=== PATIENT | female | born 1940 | race Caucasian/White ===

== ENCOUNTER 2018-04-28 13:17 | Observation (INO) | payer MEDICARE, OTHER ==
[~2018-04-28] VITALS: Ht 157.5 cm; Wt 58.0 kg
[2018-04-28] MEDS ORDERED: BENZOCAINE AEROSOL SPRAY 20%, 60ML ONE (14:19)
[2018-04-28] MEDS ORDERED: BENZOCAINE 20% SPRAY 0.5ML ONE (14:19)
--- NOTE | 2018-04-28 15:01 | NUR ---
SBAR report received from RNEn. Pt resting on [facility], on monitors.
[2018-04-28] MEDS ORDERED: LIDOCAINE 1%-EPI 1:100K, 30ML ONE (15:48)
[2018-04-28] MEDS ORDERED: BENZOCAINE 20% SPRAY 0.5ML TP ONE (16:00)
[2018-04-28] MEDS ORDERED: LIDOCAINE 1%-EPI 1:100K, 20ML INFIL ONE (16:00)
--- NOTE | 2018-04-28 16:37 | NUR ---
Pt resting on gurney, aware of plan for ENT to drain abscess. Family at bedside with pt.
--- NOTE | 2018-04-28 17:10 | NUR ---
Dr. Noe at bedside to evaluate pt.
--- NOTE | 2018-04-28 17:55 | NUR ---
Dr. Noe to bedside for procedure.
--- NOTE | 2018-04-28 18:46 | NUR ---
Telephone SBAR report given to RNLucinda.
[2018-04-28] MEDS ORDERED: ONDANSETRON ODT 4 MG PO PRN (19:30)
[2018-04-28] MEDS ORDERED: ACETAMINOPHEN 500 MG TABLET PO PRN (19:30)
[2018-04-28] MEDS ORDERED: AMPICILLIN/SULBACTAM 1,500 MG in SODIUM CHLORIDE 0.9% 50 ML IV SCH (20:00)
[2018-04-28] MEDS ORDERED: KETOROLAC 30 MG/1 ML IVPush PRN (20:00)
[2018-04-28 20:30] VITALS: BP 134/80
[2018-04-28] MEDS: AMPICILLIN/SULBACTAM 3 GM in SODIUM CHLORIDE 0.9% 100 ML IV SCH (21:08)
[2018-04-28] MEDS: SODIUM CHLORIDE 0.9% 1,000 ML IV SCH (21:09)
[2018-04-29 01:38] VITALS: BP 159/78
[2018-04-29] MEDS: AMPICILLIN/SULBACTAM 3 GM in SODIUM CHLORIDE 0.9% 100 ML IV SCH ×2 (03:24→08:52)
[2018-04-29 05:24] LABS: BASOPHILS # (AUTO) 0.01 x10^3/uL (0-0.1); BASOPHILS % (AUTO) 0 % (0-1); EOSINOPHILS % (AUTO) 0 % (1-7); LYMPHOCYTES # (AUTO) 0.49 x10^3/uL (1-3.4); LYMPHOCYTES % (AUTO) 5 % (22-44); MD NO; MEAN CORPUSCULAR HEMOGLOBIN 32.5 pg (27.0-34.8); MEAN CORPUSCULAR HGB CONC 33.6 g/dL (32.4-35.8); MEAN CORPUSCULAR VOLUME 96.5 fL (80-100); MEAN PLATELET VOLUME 8.3 fL (7.4-10.4); MONOCYTES # (AUTO) 0.89 x10^3/uL (0.2-0.8); MONOCYTES % (AUTO) 9 % (2-9); NEUTROPHILS # (AUTO) 8.18 x10^3/uL (1.8-6.8); NEUTROPHILS % (AUTO) 85 % (42-75); PLATELET COUNT 282 x10^3/uL (130-400); RED BLOOD COUNT 4.25 x10^6/uL (3.82-5.3); RED CELL DISTRIBUTION WIDTH 13.2 % (9.6-15.2)
[2018-04-29 07:00] VITALS: BP 118/69
[2018-04-29] MEDS: SODIUM CHLORIDE 0.9% 1,000 ML IV SCH (08:52)
[2018-04-29] MEDS ORDERED: AMOX1TAB64 PO (12:11)
[2018-04-29 13:16] VITALS: BP 127/75
== END 2018-04-29 14:19 | disposition home or self-care (01) ==
LOC: ED 14:04 → EDIP 18:23 → INTOOBSV 18:23 → UNDOADMOB 18:23 → EDIP 19:06 → 4NOR 19:06 → EDIP 19:11 → DCLOUNGE 04-29 14:10 → 4NOR 04-29 14:10 → UNDODISOB 04-29 14:19
PROVIDERS: ADMIT Hospitalist; ATTEND Hospitalist
DX: J03.90 Acute tonsillitis, unspecified (principal); M81.0 Age-related osteoporosis without current pathological fracture; J35.8 Other chronic diseases of tonsils and adenoids; Z87.891 Personal history of nicotine dependence
CPT/HCPCS: 36415; 42700; 85025; 96365; 96366; 99284; G0378; J0295; J7030

== ENCOUNTER 2018-05-19 12:34 | Inpatient (IN) | payer MEDICARE ==
[~2018-05-19] VITALS: Ht 157.5 cm; Wt 59.7 kg
[~2018-05-19 12:34] MED LIST: AMOX1TAB64 PO
--- NOTE | 2018-05-19 13:26 | NUR ---
PT BIB FAMILY FROM CT AFTER MD TOLD PT TO COME TO ER FOR APPENDICITIS. PT REPORTS SHARP, INTERMITTENT RLQ ABD PAIN SINCE 04/30/18. PT DENIES N/V OR DIARRHEA. PT UNDRESSED AND IV STARTED BY CT.
[2018-05-19] MEDS ORDERED: SODIUM CHLORIDE FLUSH 10ML SYR IVF ONE (13:30)
[2018-05-19] MEDS ORDERED: CEFOTETAN PMX 1GM/50ML 50 ML IVPB ONE (13:30)
[2018-05-19] MEDS ORDERED: CEFOTETAN PMX 1GM/50ML 50 ML ONE (13:32)
[2018-05-19 13:35] LABS: BASOPHILS # (AUTO) 0.02 x10^3/uL (0-0.1); BASOPHILS % (AUTO) 0 % (0-1); EOSINOPHILS % (AUTO) 1 % (1-7); LYMPHOCYTES # (AUTO) 0.74 x10^3/uL (1-3.4); LYMPHOCYTES % (AUTO) 8 % (22-44); MD NO; MEAN CORPUSCULAR HGB CONC 33.2 g/dL (32.4-35.8); MEAN CORPUSCULAR VOLUME 96.5 fL (80-100); MEAN PLATELET VOLUME 8.2 fL (7.4-10.4); MONOCYTES # (AUTO) 0.42 x10^3/uL (0.2-0.8); MONOCYTES % (AUTO) 5 % (2-9); NEUTROPHILS # (AUTO) 8.21 x10^3/uL (1.8-6.8); NEUTROPHILS % (AUTO) 87 % (42-75); PLATELET COUNT 354 x10^3/uL (130-400); RED BLOOD COUNT 4.84 x10^6/uL (3.82-5.3)
[2018-05-19 13:47] LABS: ALANINE AMINOTRANSFERASE 19 U/L (12-78); ALBUMIN 3.8 g/dL (3.4-5.0); ANION GAP 11 mmol/L (5-15); CALCIUM 9.8 mg/dL (8.5-10.1); CHLORIDE 98 mmol/L (98-107); INTERNATIONAL NORMALIZED RATIO 1.14 (0.93-1.1)
[2018-05-19 13:49] LABS: ALKALINE PHOSPHATASE 72 U/L (45-117); BILIRUBIN,TOTAL 0.7 mg/dL (0.2-1.0); TOTAL PROTEIN 8.5 g/dL (6.4-8.2)
[2018-05-19] MEDS ORDERED: BISACODYL 10 MG SUPP PR PRN (14:00)
[2018-05-19] MEDS ORDERED: ACETAMINOPHEN 325 MG TABLET PO PRN (14:00)
[2018-05-19] MEDS ORDERED: hydrALAzine 20 MG/ML, 1ML IVPush PRN (14:00)
[2018-05-19] MEDS ORDERED: POLYETHYLENE GLYCOL 17 GM PACKET PO PRN (14:00)
[2018-05-19] MEDS ORDERED: DOCUSATE 100 MG CAPSULE PO PRN (14:00)
[2018-05-19 14:35] LABS: CULTURE INDICATED? YES; MICROSCOPIC INDICATED
[2018-05-19] MEDS ORDERED: ALENDRONATE PO (14:42)
[2018-05-19 15:29] VITALS: BP 112/69
[2018-05-19] MEDS: PIPERACILLIN/TAZO/PMX 3.375GM 50 ML IV SCH ×2 (16:48→23:31)
[2018-05-19] MEDS: NS + 20MEQ KCL 1,000 ML IV SCH (16:49)
[2018-05-19] MEDS ORDERED: BUPIVACAINE/PF-EPI 0.5% 1:200K ONE (17:46)
[2018-05-19] MEDS ORDERED: SUCCINYLCHOLINE 20 MG/ML, 10ML ONE (19:03)
[2018-05-19] MEDS ORDERED: DEXAMETHASONE 4 MG/ML, 1ML ONE (19:03)
[2018-05-19] MEDS ORDERED: ONDANSETRON 2MG/ML, 2ML ONE (19:03)
[2018-05-19] MEDS ORDERED: PROPOFOL 10 MG/ML, 20ML ONE (19:03)
[2018-05-19] MEDS ORDERED: ROCURONIUM 10 MG/ML,10ML ONE (19:03)
[2018-05-19] MEDS ORDERED: ONDANSETRON 2MG/ML, 2ML IV PRN (19:30)
[2018-05-19] MEDS ORDERED: HYDROmorphone 2 MG/ML, 1ML IVPush PRN (19:30)
[2018-05-19] MEDS ORDERED: hydrALAzine 20 MG/ML, 1ML IV PRN (19:30)
[2018-05-19] MEDS ORDERED: MEPERIDINE/PF 25MG/0.5ML IVPush PRN (19:30)
[2018-05-19] MEDS ORDERED: OXYcodone 5 MG/5 ML ORAL.SOL UDC PO PRN (19:30)
[2018-05-19] MEDS ORDERED: PROMETHAZINE 25 MG/ML, 1ML IV PRN (19:30)
[2018-05-19] MEDS ORDERED: LABETALOL 5MG/ML, 20ML IV PRN (19:30)
[2018-05-19] MEDS ORDERED: FENTANYL PF 100 MCG/2ML ONE (20:04)
[2018-05-19] MEDS ORDERED: ACETAMINOPHEN 650 MG/20.3 ML UDC ONE (20:04)
[2018-05-19] MEDS ORDERED: OXYcodone 5 MG/5 ML ORAL.SOL UDC ONE (20:05)
[2018-05-19] MEDS: FENTANYL PF 100 MCG/2ML IV PRN ×2 (20:14→20:24)
[2018-05-19] MEDS ORDERED: HYDROmorphone 1 MG/ML, 1ML ONE (20:25)
[2018-05-19 20:57] VITALS: BP 106/67
[2018-05-20 00:50] VITALS: BP 94/59
[2018-05-20] MEDS: morphine SULFATE 10 MG/ML, 1ML IVPush PRN ×5 (01:29→23:34)
[2018-05-20] MEDS: PIPERACILLIN/TAZO/PMX 3.375GM 50 ML IV SCH ×4 (05:25→23:34)
[2018-05-20 05:48] LABS: ALBUMIN 2.9 g/dL (3.4-5.0); ANION GAP 10 mmol/L (5-15); CALCIUM 8.3 mg/dL (8.5-10.1); CHLORIDE 106 mmol/L (98-107)
[2018-05-20 05:54] LABS: ALANINE AMINOTRANSFERASE 15 U/L (12-78); ALKALINE PHOSPHATASE 55 U/L (45-117); BILIRUBIN,TOTAL 0.9 mg/dL (0.2-1.0); CREATININE 0.93 mg/dL (0.55-1.02); TOTAL PROTEIN 6.6 g/dL (6.4-8.2)
[2018-05-20 06:18] LABS: BASOPHILS # (AUTO) 0.01 x10^3/uL (0-0.1); BASOPHILS % (AUTO) 0 % (0-1); EOSINOPHILS # (AUTO) 0.07 x10^3/uL (0-0.4); EOSINOPHILS % (AUTO) 1 % (1-7); LYMPHOCYTES # (AUTO) 0.33 x10^3/uL (1-3.4); LYMPHOCYTES % (AUTO) 2 % (22-44); MD NO; MEAN CORPUSCULAR HEMOGLOBIN 32.7 pg (27.0-34.8); MEAN CORPUSCULAR HGB CONC 33.5 g/dL (32.4-35.8); MEAN CORPUSCULAR VOLUME 97.7 fL (80-100); MEAN PLATELET VOLUME 8.6 fL (7.4-10.4); MONOCYTES # (AUTO) 0.53 x10^3/uL (0.2-0.8); MONOCYTES % (AUTO) 4 % (2-9); NEUTROPHILS # (AUTO) 12.96 x10^3/uL (1.8-6.8); NEUTROPHILS % (AUTO) 93 % (42-75); PLATELET COUNT 286 x10^3/uL (130-400); RED CELL DISTRIBUTION WIDTH 13.1 % (9.6-15.2)
[2018-05-20 08:19] VITALS: BP 93/58
[2018-05-20] MEDS: ONDANSETRON 2MG/ML, 2ML IVPush PRN ×3 (09:20→23:34)
[2018-05-20] MEDS: NS + 20MEQ KCL 1,000 ML IV SCH ×2 (09:24→23:34)
[2018-05-20 15:47] VITALS: BP 96/57
[2018-05-20 20:55] VITALS: BP 101/60
[2018-05-21 02:03] VITALS: BP 101/56
[2018-05-21] MEDS: morphine SULFATE 10 MG/ML, 1ML IVPush PRN (05:06)
[2018-05-21] MEDS: PIPERACILLIN/TAZO/PMX 3.375GM 50 ML IV SCH ×4 (05:06→23:36)
[2018-05-21 05:18] LABS: ANION GAP 8 mmol/L (5-15); CHLORIDE 110 mmol/L (98-107); CREATININE 0.58 mg/dL (0.55-1.02)
[2018-05-21 05:26] LABS: BASOPHILS # (AUTO) 0.02 x10^3/uL (0-0.1); BASOPHILS % (AUTO) 0 % (0-1); EOSINOPHILS # (AUTO) 0.04 x10^3/uL (0-0.4); EOSINOPHILS % (AUTO) 1 % (1-7); LYMPHOCYTES % (AUTO) 11 % (22-44); MD NO; MEAN CORPUSCULAR HEMOGLOBIN 32.4 pg (27.0-34.8); MEAN CORPUSCULAR HGB CONC 32.9 g/dL (32.4-35.8); MEAN CORPUSCULAR VOLUME 98.3 fL (80-100); MEAN PLATELET VOLUME 8.1 fL (7.4-10.4); MONOCYTES # (AUTO) 0.56 x10^3/uL (0.2-0.8); MONOCYTES % (AUTO) 8 % (2-9); NEUTROPHILS # (AUTO) 5.69 x10^3/uL (1.8-6.8); NEUTROPHILS % (AUTO) 80 % (42-75); PLATELET COUNT 264 x10^3/uL (130-400); RED BLOOD COUNT 3.55 x10^6/uL (3.82-5.3); RED CELL DISTRIBUTION WIDTH 13.3 % (9.6-15.2)
[2018-05-21 07:04] VITALS: BP 94/57
[2018-05-21] MEDS ORDERED: PROMETHAZINE 25MG TABLET PO PRN (10:30)
[2018-05-21 14:06] VITALS: BP 107/65
[2018-05-21] MEDS: NS + 20MEQ KCL 1,000 ML IV SCH (14:25)
[2018-05-21 20:00] VITALS: BP 131/76
[2018-05-22] MEDS: NS + 20MEQ KCL 1,000 ML IV SCH (02:15)
[2018-05-22 02:26] VITALS: BP 127/70
[2018-05-22] MEDS: PIPERACILLIN/TAZO/PMX 3.375GM 50 ML IV SCH ×2 (05:26→11:35)
[2018-05-22 06:01] LABS: BASOPHILS # (AUTO) 0.04 x10^3/uL (0-0.1); BASOPHILS % (AUTO) 1 % (0-1); EOSINOPHILS # (AUTO) 0.17 x10^3/uL (0-0.4); EOSINOPHILS % (AUTO) 3 % (1-7); LYMPHOCYTES # (AUTO) 0.67 x10^3/uL (1-3.4); LYMPHOCYTES % (AUTO) 10 % (22-44); MD NO; MEAN CORPUSCULAR HEMOGLOBIN 32.4 pg (27.0-34.8); MEAN CORPUSCULAR HGB CONC 33.7 g/dL (32.4-35.8); MEAN CORPUSCULAR VOLUME 96.1 fL (80-100); MEAN PLATELET VOLUME 8.2 fL (7.4-10.4); MONOCYTES # (AUTO) 0.55 x10^3/uL (0.2-0.8); MONOCYTES % (AUTO) 8 % (2-9); NEUTROPHILS # (AUTO) 5.33 x10^3/uL (1.8-6.8); NEUTROPHILS % (AUTO) 79 % (42-75); PLATELET COUNT 253 x10^3/uL (130-400); RED BLOOD COUNT 3.71 x10^6/uL (3.82-5.3); RED CELL DISTRIBUTION WIDTH 13.2 % (9.6-15.2)
[2018-05-22 06:02] LABS: ANION GAP 9 mmol/L (5-15); CALCIUM 8.6 mg/dL (8.5-10.1); CHLORIDE 108 mmol/L (98-107)
[2018-05-22 06:04] LABS: CREATININE 0.52 mg/dL (0.55-1.02)
[2018-05-22 06:42] VITALS: BP 130/71
[2018-05-22] MEDS ORDERED: CEFD300C37 PO (11:44)
[2018-05-22] MEDS ORDERED: POLY17PO5 PO (11:44)
[2018-05-22] MEDS ORDERED: ACET325T14 PO (11:44)
[2018-05-22] MEDS ORDERED: ONDA4TAB13 SL (11:44)
[2018-05-22] MEDS ORDERED: METR500T PO (11:44)
[2018-05-22] MEDS ORDERED: LACT1TAB13 PO (11:44)
[2018-05-22] MEDS ORDERED: HYDR-3652 PO (11:47)
[2018-05-22] MEDS ORDERED: TRAM50TA2 PO (11:47)
[2018-05-22] MEDS ORDERED: HYDROcodone/APAP 5/325 TABLET PO PRN (12:30)
== END 2018-05-22 13:26 | disposition home or self-care (01) | DRG 853 ==
LOC: 3NE 13:37 → OR 15:06
PROVIDERS: ADMIT Internal Medicine; ATTEND Internal Medicine
PROC: 0W9G40Z Drainage of Peritoneal Cavity with Drainage Device, Percutaneous Endoscopic Approach (ICD-10-PCS; 2018-05-19)
PROC: 0DTJ4ZZ Resection of Appendix, Percutaneous Endoscopic Approach (ICD-10-PCS; principal; 2018-05-19 18:30)
DX: A41.9 Sepsis, unspecified organism (principal); K35.33 Acute appendicitis with perforation, localized peritonitis, and gangrene, with abscess; N39.0 Urinary tract infection, site not specified; B96.20 Unspecified Escherichia coli [E. coli] as the cause of diseases classified elsewhere; M81.0 Age-related osteoporosis without current pathological fracture; D25.9 Leiomyoma of uterus, unspecified; Z83.3 Family history of diabetes mellitus; Z87.891 Personal history of nicotine dependence
CPT/HCPCS: 36415; 71045; 80048; 80053; 81001; 82378; 83735; 84100; 85025; 85610; 85730; 86304; 87040; 87077; 87086; 87186; 88304; 93005; 96365; 99285; G0378; J1100; J2405; J2543; J2704; J3010; J3480; J0330; J2270; J3490

== ENCOUNTER → 2018-08-09 | Outpatient (CLI) | payer MEDICARE ==
[~2018-08-09] MED LIST changes: +ACET325T14 PO; +ALENDRONATE PO; +CEFD300C37 PO; +HYDR-3652 PO; +LACT1TAB13 PO; +METR500T PO; +OMNIPAQUE 350 MG/ML, 100ML BOTTLE ONE; +ONDA4TAB13 SL; +POLY17PO5 PO; +TRAM50TA2 PO
== END | disposition home or self-care (01) ==
LOC: CFH 07:37
PROVIDERS: ATTEND Specialist
DX: K57.30 Diverticulosis of large intestine without perforation or abscess without bleeding (principal); K76.0 Fatty (change of) liver, not elsewhere classified; K76.89 Other specified diseases of liver; I70.0 Atherosclerosis of aorta; M85.88 Other specified disorders of bone density and structure, other site; N85.2 Hypertrophy of uterus; N83.299 Other ovarian cyst, unspecified side; Z90.49 Acquired absence of other specified parts of digestive tract; Z87.891 Personal history of nicotine dependence
CPT/HCPCS: 74177; 82565; Q9967

== ENCOUNTER 2018-09-28 11:00 | Outpatient (CLI) | payer MEDICARE ==
[~2018-09-28 11:00] MED LIST changes: -OMNIPAQUE 350 MG/ML, 100ML BOTTLE ONE
[2018-09-28] MEDS ORDERED: MV-M1TAB16 PO (11:29)
[2018-09-28] MEDS ORDERED: ALEN70TA6 PO (11:29)
[2018-09-28] MEDS ORDERED: MULT-717 PO (11:29)
[2018-09-28 12:12] LABS: BASOPHILS # (AUTO) 0.03 x10^3/uL (0-0.1); BASOPHILS % (AUTO) 1 % (0-1); EOSINOPHILS # (AUTO) 0.17 x10^3/uL (0-0.4); EOSINOPHILS % (AUTO) 3 % (1-7); LYMPHOCYTES # (AUTO) 1.06 x10^3/uL (1-3.4); LYMPHOCYTES % (AUTO) 18 % (22-44); MD NO; MEAN CORPUSCULAR HEMOGLOBIN 33.2 pg (27.0-34.8); MEAN CORPUSCULAR HGB CONC 33.7 g/dL (32.4-35.8); MEAN CORPUSCULAR VOLUME 98.4 fL (80-100); MEAN PLATELET VOLUME 8.1 fL (7.4-10.4); MONOCYTES % (AUTO) 9 % (2-9); NEUTROPHILS # (AUTO) 4.04 x10^3/uL (1.8-6.8); NEUTROPHILS % (AUTO) 70 % (42-75); PLATELET COUNT 273 x10^3/uL (130-400); RED BLOOD COUNT 4.63 x10^6/uL (3.82-5.3); RED CELL DISTRIBUTION WIDTH 13.3 % (9.6-15.2)
[2018-09-28 12:19] LABS: INTERNATIONAL NORMALIZED RATIO 1.09 (0.93-1.1); PROTHROMBIN TIME 11.4 Seconds (9.6-11.5)
[2018-09-28 12:39] LABS: ALANINE AMINOTRANSFERASE 25 U/L (12-78); ALBUMIN 3.8 g/dL (3.4-5.0); ANION GAP 8 mmol/L (5-15); CALCIUM 9.3 mg/dL (8.5-10.1); CHLORIDE 105 mmol/L (98-107); CREATININE 1.05 mg/dL (0.55-1.02)
[2018-09-28 12:43] LABS: ALKALINE PHOSPHATASE 54 U/L (45-117); BILIRUBIN,TOTAL 0.8 mg/dL (0.2-1.0); TOTAL PROTEIN 7.5 g/dL (6.4-8.2)
== END 2018-09-28 23:59 | disposition home or self-care (01) ==
LOC: STAR 11:00
PROVIDERS: ATTEND Specialist
DX: Z01.818 Encounter for other preprocedural examination (principal); R19.01 Right upper quadrant abdominal swelling, mass and lump; I44.7 Left bundle-branch block, unspecified
CPT/HCPCS: 36415; 80053; 85025; 85610; 85730; 93005

== ENCOUNTER 2018-10-03 11:48 | Observation (INO) | payer MEDICARE ==
[~2018-10-03] VITALS: Ht 157.5 cm; Wt 59.3 kg
[~2018-10-03 11:48] MED LIST changes: +ALEN70TA6 PO; +BUPIVACAINE/PF 0.25% ONE; +MULT-717 PO; +MV-M1TAB16 PO
[2018-10-03] MEDS ORDERED: LACTATED RINGERS 1,000 ML IV SCH (12:19)
[2018-10-03 12:24] VITALS: BP 150/80
[2018-10-03] MEDS ORDERED: FENTANYL PF 250 MCG/5ML ONE (16:17)
[2018-10-03] MEDS ORDERED: ACETAMINOPHEN 325 MG TABLET PO PRN (16:30)
[2018-10-03] MEDS ORDERED: ONDANSETRON ODT 8 MG PO PRN (16:30)
[2018-10-03] MEDS ORDERED: PROMETHAZINE 25 MG/ML, 1ML IV PRN (16:30)
[2018-10-03] MEDS ORDERED: FENTANYL PF 100 MCG/2ML IV PRN (16:30)
[2018-10-03] MEDS ORDERED: ONDANSETRON 2MG/ML, 2ML IV PRN (16:30)
[2018-10-03] MEDS ORDERED: OXYcodone 5 MG/5 ML ORAL.SOL UDC PO PRN (16:30)
[2018-10-03] MEDS ORDERED: PROMETHAZINE 25 MG SUPP PR PRN (16:30)
[2018-10-03] MEDS ORDERED: MECLIZINE CHEWABLE 25 MG TAB PO PRN (16:30)
[2018-10-03] MEDS ORDERED: EPHEDRINE 50 MG/ML, 1ML ONE (16:36)
[2018-10-03] MEDS ORDERED: hydrALAzine 20 MG/ML, 1ML ONE (16:36)
[2018-10-03] MEDS ORDERED: LIDOCAINE 2% 100MG/5ML SYRINGE ONE (16:36)
[2018-10-03] MEDS ORDERED: CEFAZOLIN 1,000 MG ONE (18:06)
[2018-10-03] MEDS ORDERED: ONDANSETRON 2MG/ML, 2ML ONE (18:06)
[2018-10-03] MEDS ORDERED: DEXAMETHASONE 4 MG/ML, 1ML ONE (18:06)
[2018-10-03] MEDS ORDERED: SUCCINYLCHOLINE 20 MG/ML, 10ML ONE (18:06)
[2018-10-03] MEDS ORDERED: GLYCOPYRROLATE 0.2MG/1ML, 5ML ONE (18:06)
[2018-10-03] MEDS ORDERED: ROCURONIUM 10MG/ML,5ML ONE (18:06)
[2018-10-03] MEDS ORDERED: NEOSTIGMINE 1 MG/ML, 10ML ONE (18:06)
[2018-10-03] MEDS ORDERED: PROPOFOL 10 MG/ML, 20ML ONE (18:06)
[2018-10-03] MEDS ORDERED: ALBUTEROL HFA 90 MCG/SPRAY ONE (18:21)
[2018-10-03] MEDS ORDERED: FENTANYL PF 100 MCG/2ML ONE (18:21)
[2018-10-03] MEDS ORDERED: HYDROmorphone 2 MG/ML, 1ML ONE (18:50)
[2018-10-03] MEDS: HYDROmorphone 2 MG/ML, 1ML IVPush PRN ×2 (18:54→19:07)
[2018-10-04 00:12] VITALS: BP 111/67
[2018-10-04] MEDS ORDERED: ONDANSETRON 2MG/ML, 2ML IVPush PRN (01:00)
[2018-10-04] MEDS ORDERED: OXYcodone/APAP 5/325MG TABLET PO PRN (01:00)
[2018-10-04 04:16] VITALS: BP 97/49
[2018-10-04 06:30] VITALS: BP 113/59
== END 2018-10-04 06:39 | disposition home or self-care (01) ==
LOC: OR 11:48 → 4NOR 20:15 → OR 23:17
PROVIDERS: ADMIT Specialist; ATTEND Specialist
DX: D25.9 Leiomyoma of uterus, unspecified (principal); D27.0 Benign neoplasm of right ovary
CPT/HCPCS: 36415; 58552; 74018; 86850; 86900; 86923; 88307; 88311; 96374; G0378; J0330; J0360; J0690; J1100; J1170; J2405; J2704; J2710; J3010; J3490; J7120; S2900